=== PATIENT | male | born 1990 | race Caucasian/White ===

== ENCOUNTER 2017-04-19 11:10 | Emergency (ER) | payer BC ==
[2017-04-19 11:36] VITALS: BP 122/71
--- NOTE | 2017-04-19 12:05 | EDM.PDOC ---
ED HPI GENERAL MEDICAL PROBLEM - General Chief Complaint: Skin Complaint Stated Complaint: REALLY BAD POISON [place] Time Seen by Provider: 04/19/17 11:58 Source of Information: Reports: Patient History Limitations: Reports: No Limitations - History of Present Illness INITIAL COMMENTS - FREE TEXT/NARRATIVE: ?exposure to poison nyla on . Is spreading now. Is using Calamine lotion. Onset: Gradual Duration: Getting Worse Location: Reports: Face, Upper Extremity, Left, Upper Extremity, Right, Lower Extremity, Left, Lower Extremity, Right Severity: Moderate Improves with: Reports: Medication Worsens with: Reports: None Associated Symptoms: Reports: No Other Symptoms - Related Data Allergies Allergy/AdvReac Type Severity Reaction Status Date / Time No Known Allergies Allergy Verified 04/19/17 11:47 Home Meds: Home Meds Cetirizine HCl [Zyrtec] 1 tab PO DAILY 04/19/17 [History] Past Medical History Musculoskeletal History: Reports: Fracture Neurological History: Reports: Migraines - Past Surgical History GI Surgical History: Reports: Appendectomy Musculoskeletal Surgical History: Reports: Arthroscopic Knee Social & Family History - Tobacco Use Smoking Status *Q: Never Smoker - Recreational Drug Use Recreational Drug Use: No ED ROS GENERAL - Review of Systems Review Of Systems: See Below Constitutional: Reports: No Symptoms HEENT: Reports: No Symptoms Respiratory: Reports: No Symptoms Cardiovascular: Reports: No Symptoms Skin: Reports: Pruritis, Rash ED EXAM, SKIN/RASH Exam: See Below Exam Limited By: No Limitations General Appearance: Alert, WD/WN, No Apparent Distress Ears: Normal External Exam, Normal Canal, Hearing Grossly Normal, Normal TMs Nose: Normal Inspection, Normal Mucosa, No Blood Throat/Mouth: Normal Inspection, Normal Lips, Normal Teeth, Normal Gums, Normal Oropharynx, Normal Voice, No Airway Compromise Head: Atraumatic, Normocephalic Neck: Normal Inspection, Supple, Non-Tender, Full Range of Motion Respiratory/Chest: No Respiratory Distress, Lungs Clear, Normal Breath Sounds, No Accessory Muscle Use, Chest Non-Tender Cardiovascular: Normal Peripheral Pulses, Regular Rate, Rhythm, No Edema, No Gallop, No JVD, No Murmur, No Rub Skin: Rash (with moist rash spreading from forearms upward, lesion to left eye) Location, Skin: Face, Upper Extremity, Right, Upper Extremity, Left, Lower Extremity, Right, Lower Extremity, Left Characteristics: Maculopapular, Urticarial, Erythematous Associated features: Weeping Course - Vital Signs Last Recorded V/S: Last Vital Signs Temp 96.3 F 04/19/17 11:47 Pulse 53 L 04/19/17 11:47 Resp 16 04/19/17 11:47 BP 122/71 04/19/17 11:47 Pulse Ox 96 04/19/17 11:47 Departure - Departure Time of Disposition: 12:02 Disposition: Home, Self-Care 01 Condition: good Clinical Impression: Poison nyla dermatitis - Discharge Information Instructions: Poison Nyla Dermatitis, [id number] Forms: ED Department Discharge Additional Instructions: Medrol dosepak as directed x 6 days. May repeat if not resolving. May use Benadryl as needed. Xanfel topical as needed. Wash clothing. Prevent future exposure. - Problem List & Annotations (1) Poison nyla dermatitis SNOMED Code(s): 298577473 Code(s): L23.7 - ALLERGIC CONTACT DERMATITIS DUE TO PLANTS, EXCEPT FOOD Status: Acute Priority: Low Current Visit: Yes - Problem List Review Problem List Initiated/Reviewed/Updated: Yes
== END 2017-04-19 12:32 | disposition home or self-care (01) ==
LOC: JP.ED 11:10
DX: L23.7 Allergic contact dermatitis due to plants, except food (principal); G43.909 Migraine, unspecified, not intractable, without status migrainosus; Z90.49 Acquired absence of other specified parts of digestive tract
CPT/HCPCS: 99283